=== PATIENT | male | born 1960 | race Caucasian/White ===

== ENCOUNTER 2017-05-07 09:18 | Emergency (ER) | payer OTHER ==
[~2017-05-07 09:18] MED LIST: ACE3 PO; CELE-1 PO; CEP500 PO; DAPA10TA PO; ENO100I; ENOXAPARIN; EXEN10PE6 SQ; FENO145T36 PO; FISH OIL1 CAP PO; IBU200 PO; INSU200I4 SC; LANI SQ; LISI-368 PO; LOR5 PO; LOR5/325 PO; MET500 PO; OFF COUMADIN; ONDA4TAB PO; PER PO; RIVA20TA PO; ROSU40TA18 PO; SERT-181 PO; SIMV-44 PO; SIMV-54 PO; TAMS0.4C25 PO; WAR5 PO
--- NOTE | 2017-05-07 10:12 | ER Report ---
History and Physical Time Seen By MD: 09:45 Hx. of Stated Complaint: patient states that he has been having sinus problems since january HPI/ROS CHIEF COMPLAINT: Left-sided facial and sinus pressure HISTORY OF PRESENT ILLNESS: Patient is a 56-year-old male who presents to department for evaluation of sinus problems since February. Patient was diagnosed with sinusitis and February started on Flonase and ampicillin with some improvement of the symptoms. Patient states that his blood sugars since taking both ampicillin and Flonase have been in the upper 100 to 200s. This is typically unusual for him. He normally has good blood sugar control. Patient is denying fevers. He states that symptoms are worse at night specifically if he lays on his left side. Symptoms improved while sitting up. Patient reports having purulent nasal drainage. He reports postnasal drip worse at nighttime. Denies chest pain or cough. Denies fevers or chills. REVIEW OF SYSTEMS: Respiratory: No cough, no dyspnea. Cardiovascular: No chest pain, no palpitations. Gastrointestinal: No vomiting, no abdominal pain. Musculoskeletal: No back pain. Allergies: Coded Allergies: No Known Drug Allergies (Unverified , 05/07/17) Home Meds Active Scripts Zolpidem Tartrate (AMBIEN) 10 Mg Tablet, 1 TAB PO QHS for insomnia, #10 TAB 0 Refills Prov:CALE ORO MD 05/07/17 Oxymetazoline Hcl (AFRIN) 30 Ml Grayson, 2 SPR MELINA BID, #1 BOTTLE 0 Refills discontinue use after 3-5 days Prov:CALE ORO MD 05/07/17 Pseudoephedrine Hcl (SUDAFED 12 HOUR) 120 Mg Tablet.er, 120 MG PO Q12H for congestion, #28 TAB 0 Refills Prov:CALE ORO MD 05/07/17 Reported Medications Insulin Degludec (Tresiba Flextouch U-200) 200 Unit/Ml (3 Ml) Insuln.pen, 30 UNITS SC DAILY 11/09/16 Rivaroxaban 20 Mg (XARELTO 20 MG) 20 Mg Tablet, 20 MG PO DAILY 03/14/15 Past Medical/Surgical History History of diabetes now requiring insulin Hx Smoking: Yes (CIGARS DURING THE SUMMER) Hx Substance Use Disorder: No Hx Alcohol Use: Yes Constitutional Vital Sign - Last 24 Hours 3/1105/07/17 05/07/17 05/07/17 09:23 09:30 09:45 10:00 Temp 97.9 Pulse 87 77 87 Resp 18 B/P (MAP) 156/108 136/96 (109) 127/95 (106) Pulse Ox 94 92 93 O2 Delivery Room Air 05/07/17 05/07/17 10:30 10:45 Pulse 85 82 B/P (MAP) 125/90 (102) Pulse Ox 92 92 Physical Exam General Appearance: The patient is alert, has no immediate need for airway protection and no current signs of toxicity. Eyes: Pupils equal and round no injection. ENT-TMs clear bilaterally. Oropharynx shows some posterior cobblestoning there is no erythema or exudate noted. Nasal turbinates bilaterally. Inflamed. Left nasal turbinate appears to have purulent yellow drainage. Respiratory: Chest is non tender, lungs are clear to auscultation. Cardiac: regular rate and rhythm Gastrointestinal: Abdomen is soft and non tender, no masses, bowel sounds normal. Musculoskeletal: Neck: Neck is supple and non tender. Extremities have full range of motion and are non tender. Skin: No rashes or lesions. Medical Decision Making EKG/Imaging Imaging FACILITY: [facility] PATIENT NAME: Richard Adan : 1960 MR: [id number] V: [id number] EXAM DATE: ORDERING PHYSICIAN: CALE ORO TECHNOLOGIST: Location: [facility] Patient: Richard Adan : 1960 Visit/Account:[id number] Date of Sevice: 05/07/2017 SINUSES W/O CONTRAST HISTORY: Pain One of the following dose optimization techniques was utilized in the performance of this exam: Automated exposure control; adjustment of the mA and/ or kV according to the patient's size; or use of an iterative reconstruction technique. Specific details can be referenced in the facility's radiology CT exam operational policy. HISTORY: pain COMPARISON STUDIES: none TECHNIQUE: Contiguous axial images were obtained through the paranasal sinuses without intravenous contrast. Coronal and sagittal reformatted images were obtained from the axial source data. CONTRAST: None FINDINGS: Maxillary sinuses and OMC: No air-fluid levels or mucosal thickening. Frontal sinuses: No air-fluid levels or mucosal thickening. Hypoplastic frontal sinuses. Ethmoid air cells: Negative Sphenoid sinuses: Negative Nasal septum / turbinates: No mirella bullosa changes. Septum is midline. Cribriform plate: Negative Orbits: Negative Visualized intracranial contents: negative Surrounding soft tissues: Negative IMPRESSION: 1. Normal CT scan of the sinuses with no sinusitis of acute or chronic nature noted. Report Dictated By: Julian Mc MD at 05/07/2017 10:15 AM Report E-Signed By: Julian Mc MD at 05/07/2017 10:18 AM WSN:[id number] ED Course/Re-evaluation ED Course Plan at this time will be CT of the sinuses. Clinically patient does appear to have sinusitis. We'll consider starting course of antibiotics and I will suggest patient follow-up with Dr. Cody Carlson ear nose and throat. Decision to Disposition Date: May 07, 2017 Decision to Disposition Time: 10:38 Depart Departure Latest Vital Signs Vital Signs Date Time Temp Pulse Resp B/P (MAP) Pulse Ox O2 Delivery O2 Flow Rate FiO2 05/07/17 10:45 82 92 05/07/17 10:30 125/90 (102) 05/07/17 09:23 97.9 18 Room Air Impression: Primary Impression: Rhinitis Condition: Improved Disposition: HOME OR SELF-CARE Referrals: JESSIE COLBERT MD (PCP) 1 Day CODY CARLSON JR, MD 1 Week New Scripts Zolpidem Tartrate (AMBIEN) 10 Mg Tablet 1 TAB PO QHS for insomnia, #10 TAB 0 Refills Prov: CALE ORO MD 05/07/17 Oxymetazoline Hcl (AFRIN) 30 Ml Grayson 2 SPR MELINA BID, #1 BOTTLE 0 Refills discontinue use after 3-5 days Prov: CALE ORO MD 05/07/17 Pseudoephedrine Hcl (SUDAFED 12 HOUR) 120 Mg Tablet.er 120 MG PO Q12H for congestion, #28 TAB 0 Refills Prov: CALE ORO MD 05/07/17 Patient Instructions: Rhinosinusitis (ED) Problem Qualifiers Primary Impression: Rhinitis Rhinitis type: allergic Allergic rhinitis trigger: unspecified Allergic rhinitis seasonality: unspecified seasonality Qualified Codes: J30.9 - Allergic rhinitis, unspecified CALE ORO MD May 07, 2017 10:12
--- NOTE | 2017-05-07 10:21 | RADIOLOGY IMAGING REPORT ---
FACILITY: [facility] PATIENT NAME: Richard Adan : 1960 MR: [id number] V: [id number] EXAM DATE: ORDERING PHYSICIAN: CALE ORO TECHNOLOGIST: Location: [facility] Patient: Richard Adan : 1960 Visit/Account:[id number] Date of Sevice: 05/07/2017 SINUSES W/O CONTRAST HISTORY: Pain One of the following dose optimization techniques was utilized in the performance of this exam: Autom ated exposure control; adjustment of the mA and/or kV according to the patient's size; or use of an i terative reconstruction technique. Specific details can be referenced in the facility's radiology C T exam operational policy. HISTORY: pain COMPARISON STUDIES: none TECHNIQUE: Contiguous axial images were obtained through the paranasal sinuses without intravenous c ontrast. Coronal and sagittal reformatted images were obtained from the axial source data. CONTRAST: None FINDINGS: Maxillary sinuses and OMC: No air-fluid levels or mucosal thickening. Frontal sinuses: No air-fluid levels or mucosal thickening. Hypoplastic frontal sinuses. Ethmoid air cells: Negative Sphenoid sinuses: Negative Nasal septum / turbinates: No mirella bullosa changes. Septum is midline. Cribriform plate: Negative Orbits: Negative Visualized intracranial contents: negative Surrounding soft tissues: Negative IMPRESSION: 1. Normal CT scan of the sinuses with no sinusitis of acute or chronic nature noted. Report Dictated By: Julian Mc MD at 05/07/2017 10:15 AM Report E-Signed By: Julian Mc MD at 05/07/2017 10:18 AM WSN:[id number]
[2017-05-07 10:30] VITALS: BP 125/90
[2017-05-07] MEDS ORDERED: OXYM-1 ENA (10:41)
[2017-05-07] MEDS ORDERED: PSEU120T69 PO (10:41)
[2017-05-07] MEDS ORDERED: ZOLP-350 PO (10:41)
== END 2017-05-07 10:46 | disposition home or self-care (01) ==
LOC: ER 09:31
DX: J30.9 Allergic rhinitis, unspecified (principal)
CPT/HCPCS: 70486; 99283